=== PATIENT | male | born 2000 | race Caucasian/White ===

== ENCOUNTER 2023-10-14 16:32 | Emergency (ER) | payer OTHER ==
[2023-10-14 16:38] VITALS: BP 107/68; PULSE 84; RESP 18; TEMP 98; BMI 21.5
== END 2023-10-14 19:23 | disposition home or self-care (01) ==
LOC: JERFT 16:32
DX: M25.562 Pain in left knee (principal)
CPT/HCPCS: 73564-TC-LT-FY; 73700-TC-RT; 99284-25

== ENCOUNTER 2025-03-04 12:13 | Emergency (ER) | payer OTHER ==
[2025-03-04 12:18] VITALS: TEMP 98.2; BMI 22.1
[2025-03-04] MEDS ORDERED: ACETAMINOPHEN 325 MG TABLET (FP) ONE (12:43)
[2025-03-04] MEDS: ACETAMINOPHEN 325 MG TABLET (FP) PO ONE (12:44)
[2025-03-04 13:45] VITALS: BP 106/54; PULSE 55; RESP 15
[2025-03-06 19:57] LABS: HCV DIAGNOSTIC IN-HOUSE W/RFLX NON-REACTIVE (NONREACTIVE)
[2025-03-06 20:11] LABS: HIV INTERPRETATION NEGATIVE (NEGATIVE)
== END 2025-03-04 14:10 | disposition home or self-care (01) ==
LOC: JER 12:13
DX: S06.0X0A Concussion without loss of consciousness, initial encounter (principal); R42 Dizziness and giddiness; R11.0 Nausea; R41.0 Disorientation, unspecified; W50.0XXA Accidental hit or strike by another person, initial encounter; Y99.0 Civilian activity done for income or pay
CPT/HCPCS: 36415; 70450-TC; 86803; 87389; 99284-25